=== PATIENT | female | born 1985 | race Caucasian/White ===

== ENCOUNTER 2019-08-30 12:09 | Emergency (ER) | payer MEDICAID ==
[2019-08-30 12:29] VITALS: BP 113/61
[2019-08-30] MEDS ORDERED: ACETAMINOPHEN 325 MG TABLET PO ONE (12:39)
[2019-08-30] MEDS ORDERED: IBUPROFEN 600 MG TABLET PO ONE (12:39)
--- NOTE | 2019-08-30 12:41 | ER Document Report ---
HPI - HPI Time Seen by Provider: 08/30/19 12:35 Pain Level: 5 Notes: Otherwise healthy 34-year-old female presenting to the emergency department with right hand pain. Patient reports pain over the right fifth digit. Patient reports she punched a wall last night. She has not taken any medication for this. - CONSTITUTIONAL Constitutional: DENIES: Fever, Chills - REPRODUCTIVE Reproductive: DENIES: : - MUSCULOSKELETAL Musculoskeletal: REPORTS: Extremity pain Past Medical History - General Information source: Patient - Social History Smoking Status: Never Smoker Family History: Reviewed & Not Pertinent Patient has suicidal ideation: No Patient has homicidal ideation: No - Medical History Medical History: Negative Past Surgical History: Reports: Hx Tonsillectomy - Immunizations Hx Diphtheria, Pertussis, Tetanus Vaccination: Yes Vertical Provider Document - CONSTITUTIONAL Notes: PHYSICAL EXAMINATION: GENERAL: Well-appearing, well-nourished and in no acute distress. HEAD: Atraumatic, normocephalic. EYES: Pupils equal round extraocular movements intact, conjunctiva are normal. ENT: Nares patent NECK: Normal range of motion LUNGS: No respiratory distress Musculoskeletal: Normal range of motion NEUROLOGICAL: Normal speech, normal gait. PSYCH: Normal mood, normal affect. SKIN: Mild swelling noted to the right hand near the base of the fifth digit, cap refill less than 3 seconds, radial pulse strong. - INFECTION CONTROL TRAVEL OUTSIDE OF THE [place] IN LAST 30 DAYS: No Course - Re-evaluation Re-evalutation: Hand X-Ray 08/30/19 12:40 IMPRESSION: NEGATIVE STUDY OF THE RIGHT HAND. NO RADIOGRAPHIC EVIDENCE OF ACUTE INJURY. - Vital Signs Vital signs: Temp Pulse Resp BP Pulse Ox 98.7 F 64 18 113/61 98 08/30/19 12:28 08/30/19 12:28 08/30/19 12:28 08/30/19 12:28 08/30/19 12:28 Procedures - Immobilization Right hand Pre-Proc Neuro Vasc Exam: Normal Immobilizer type: Ruiz wrap Performed by: PCT Post-Proc Neuro Vasc Exam: Normal Discharge - Discharge Clinical Impression: Contusion of right hand Qualifiers: Encounter type: initial encounter Qualified Code(s): S60.221A - Contusion of right hand, initial encounter Condition: Stable Disposition: HOME, SELF-CARE Additional Instructions: Your x-ray was negative. Please apply ice to the area. Take ibuprofen. Elevate.
--- NOTE | 2019-08-30 13:27 | RADIOLOGY REPORT (SQ) ---
EXAM DESCRIPTION: HAND RIGHT 3 VIEWS COMPLETED DATE/TIME: 08/30/2019 1:12 pm REASON FOR STUDY: PUNCHED WALL COMPARISON: 10/31/2009 EXAM PARAMETERS: NUMBER OF VIEWS: Three views. TECHNIQUE: AP, lateral and oblique radiographic images acquired of the right hand. LIMITATIONS: None. FINDINGS: MINERALIZATION: Normal. BONES: No acute fracture or dislocation. No worrisome bone lesions. JOINTS: No effusions. SOFT TISSUES: No soft tissue swelling. No foreign body. OTHER: No other significant finding. IMPRESSION: NEGATIVE STUDY OF THE RIGHT HAND. NO RADIOGRAPHIC EVIDENCE OF ACUTE INJURY. TECHNICAL DOCUMENTATION: JOB ID: [id number] 2010 [employer]- All Rights Reserved Reading location - IP/workstation name: [email or web address]
== END 2019-08-30 14:00 | disposition home or self-care (01) ==
LOC: ER 12:09
DX: S60.221A Contusion of right hand, initial encounter (principal); W22.09XA Striking against other stationary object, initial encounter
CPT/HCPCS: 99283; 73130; J3490 ×2